=== PATIENT | male | born 1995 | race Caucasian/White ===

== ENCOUNTER 2016-07-26 09:36 | Emergency (ER) | payer OTHER ==
[~2016-07-26] VITALS: Ht 177.8 cm; Wt 70.3 kg
--- NOTE | ~2016-07-26 | EKG ---
[place] [address] [facility] [place] [address] ELECTROCARDIOGRAM REPORT Name: ALEXISMARYANN Room [facility] Deanna#: [id number] Admission: 07/26/16 Attend Phys: Discharge: 07/26/16 Date of : [birth year] Report #: [id number] THIS REPORT FOR: //name// [facility] ED Test Date: 2016-07-26 Test Time: 09:43:56 Pat Name: MARYANN ESPINOZA Department: Room: Gender: Apple Picker: Carl RICCI : 1995 Requested By: Lamine Lopez Order Number: [id number] MD: Channing Damon Measurements Intervals [place] Rate: 50 P: 62 SD: 145 QRS: 83 QRSD: 103 T: 41 QT: 427 QTc: 390 Interpretive Statements Sinus bradycardia Otherwise normal tracing No previous ECG available for comparison Electronically Signed On 07-27-2016 8:10:25 CDT by Channing Damon [email or web address] <ELECTRONICALLY SIGNED> By: Channing Damon MD, [facility] 07/27/16 0810 0943 0943 Channing Damon MD, FACC /EPI
[2016-07-26 10:49] VITALS: BP 110/62
== END 2016-07-26 10:49 | disposition home or self-care (01) ==
LOC: ER 09:36
DX: R55 Syncope and collapse (principal); Z86.79 Personal history of other diseases of the circulatory system

== ENCOUNTER 2018-12-24 15:35 | Emergency (ER) | payer OTHER ==
[~2018-12-24] VITALS: Ht 175.3 cm; Wt 69.8 kg
[2018-12-24] MEDS ORDERED: PREDNISONE 20 M20 MG PO (16:43)
[2018-12-24] MEDS ORDERED: PROMETH-CODEIN 65 ML PO (16:43)
[2018-12-24 16:46] VITALS: BP 120/77
== END 2018-12-24 16:48 | disposition home or self-care (01) ==
LOC: ER 15:35
DX: J20.9 Acute bronchitis, unspecified (principal)